=== PATIENT | female | born 1965 | race Caucasian/White ===

== ENCOUNTER 2017-08-09 11:43 | Emergency (ER) | payer OTHER ==
[2017-08-09] MEDS ORDERED: KETOROLAC TROMETHAMINE 30 MG/ML VIAL IM ONE (12:05)
[2017-08-09] MEDS ORDERED: PROMETHAZINE HCL 25 MG/ML AMPUL IM ONE (12:05)
--- NOTE | 2017-08-09 12:11 | ERNOTE ---
Headache ER HPI - Narrative Date of Service: 08/09/17 - General Presenting Symptoms: headache Time Seen by Provider: 08/09/17 11:59 Source: patient Exam Limitations: no limitations - Immun/Allergies/Home Medications Immunizations: IMMUNIZATION HX Immunizations Up to Date Yes History of Influenza Vaccine No Hx Pneumococcal Vaccination No Allergies/Adverse Reactions: Allergies Sulfa (Sulfonamide Antibiotics) [Sulfa(Sulfonamide Antibiotics)] Adverse Reaction (Mild, Verified 08/09/17 11:50) RASH Home Medications: HOME MEDICATIONS Insulin Glargine,Hum.rec.anlog [Lantus] 27 units SQ HS 06/28/12 [Last Taken Unknown] Lisinopril 10 mg PO QPM 06/28/12 [Last Taken Unknown] Blood Sugar Diagnostic, Drum [Accu-Chek Compact] 1 each MC DAILY 07/06/15 [Last Taken Unknown] Cetirizine HCl [Zyrtec] 10 mg PO DAILY PRN 07/06/15 [Last Taken Unknown] buPROPion HCL [Wellbutrin XL] 150 mg PO DAILY 07/06/15 [Last Taken Unknown] Amox Tr/Potassium Clavulanate [Augmentin 875-125 Tablet] 875 mg PO Q12H #20 tab 08/09/17 [Last Taken Unknown] Glimepiride [Amaryl] 4 mg PO BID@0700,1700 08/09/17 [Last Taken Unknown] Insulin Detemir [Levemir] 20 units SC BID 08/09/17 [Last Taken Unknown] - History of Present Illness Narrative: Patient was at a meeting today approx 2 hours ago and she began to develop a headache. She has had LOCKHART previously and has had to come here for Toradol and Phenergan shots she tells me. She relates that this LOCKHART felt like her prior HAs. Not thunderclap and not worse LOCKHART of life, but she had some floaters in her visual galicia and noticed some soft spots on the top of her head. She states that she googled this and came in. No N/T/W. Now her Sx are spontaneously improved. Visual changes resolved. No temporal pain. No fever or recent illness. Moderate. Pain was top of her head and also over her mid face. She has been having some sinus congestion and sinus Sx over the last several days. Activity at onset: other - none Timing of Headache: still present, better Context Headache: Absent: CO exposure, recent head injury < 24 hrs ago, recent head injury > 24 hrs Quality: Present: throbbing Severity-Currently: Present: moderate Headache frequency: Present: occasional headaches Modifying Factors - (Improves): Reports: other - nothing Modifying Factors - (Worsens): Reports: other - nothing Associated Symptoms: Denies: fever/chills, nausea, vomiting, weakness, numbness/ tingling, confusion, light-headedness, loss of consciousness, seizures, neck pain/stiffness Prior Treament: Denies: recently seen Review of Systems - Review of Systems Constitutional: Absent: fever ENT: Absent: sore throat Respiratory: Absent: shortness of breath Cardiology: Absent: chest pain Gastrointestinal/Abdominal: Absent: abdominal pain Genitourinary: Present: no symptoms reported Musculoskeletal: Present: no symptoms reported Skin: Absent: rash Neurological: Present: See HPI - Patient's Past Medical History Patient History - Medical: Diabetes Type 2, GERD Patient History - Cardiac/Respiratory: Hypertension Patient History - Cancer: No Hx of Cancer Patient History - Surgical Procedures: Hysterectomy, Other Patient History - Other: None - Social History Living Situations: home Abuse History: No History of abuse Psych History: Hx of Depression, Current tx/ever been on anti-depressants or anti-anxiety meds Alcohol Use: none Drug Use: none - Immunizations Immunizations Up to Date: Yes Hx Pneumococcal Vaccination: No History of Influenza Vaccine: No Physical Exam - Physical Exam General Appearance: Present: alert, no apparent distress Head Exam: Present: normal inspection, no evidence of injury Eye Exam: Normal inspection: bilateral, PERRL: bilateral, EOMI: bilateral Ears, Nose, Throat: Present: normal ENT inspection, other - no temporal artery tenderness. Neck: Present: normal inspection, supple Respiratory: Present: no respiratory distress, normal breath sounds, no accessory muscle use, lungs clear Cardiovascular/Chest: Present: regular rate, rhythm, normal peripheral pulses Gastrointestinal/Abdominal: Present: normal bowel sounds, nontender, nondistended, soft Back Exam: Present: normal range of motion Extremity Exam: Present: normal inspection Neurological Exam: Present: alert, normal mood/affect, no motor/sensory deficits , other - NIH - 0 Skin Exam: Present: normal color, warm/dry ED Progress - Results and Orders Patient's Lab Results:: I have reviewed the patient's lab results. - Vital Signs Patient's Vital Signs:: I have reviewed the patient's vital signs. Vital Signs: Vital Signs 08/09/17 08/09/17 11:46 11:51 Temperature 36.6 C Pulse Rate 95 89 Respiratory 12 16 Rate Blood Pressure 195/94 O2 Sat by Pulse 97 98 Oximetry - EKG EKG: NSR EKG read: Interp. by me EKG Comments: NSR rate 79. Non-specific, no evidence of STEMI. - CT/Ultrasound CT/Ultrasound Narrative: I reviewed official radiology report of HCT. - Progress/Reassessment Chief Complaint: Headache Progress:: Improved Progress Note-Subjective: 08/09/17 13:06 Lockhart nearly resolved. She does have sinus Sx (bilateral axillary) and air fluid levels on HCT. no ICH. Nothing clinically to suggest ICH, SAH or need for LP. No suggestion of meningitis. No suggestion of stroke clinically, temporal arteritis. At this time clear evidence of acute life or limb threat. ABx for the sinusitis and UTI. She wishes to go home. I discussed warning signs and reasons to return as well as the need for close f/u. Hx of similar HAs. No CP or SOB. 08/09/17 13:09 BP improving in the ED, nothing to suggest hypertensive urgency/emergency. Departure Clinical Impression: UTI (urinary tract infection), Sinusitis, Headache - Departure Disposition: Home self-care Condition: Stable Instructions: Sinusitis, Adult, [id number] Additional Instructions: Rest. Fluids. See the eye doctor tomorrow and call for a re-check appointment with Dr Krause as soon as possible. Return here for fever, weakness, return of headache, visual changes or if your condition worsens or changes in any way. Take antibiotics as directed. Referrals: Marie Krause MD [Primary Care Provider] - Prescriptions: Amox Tr/Potassium Clavulanate [Augmentin 875-125 Tablet] 875 mg PO Q12H #20 tab
[2017-08-09] MEDS ORDERED: KETOROLAC TROMETHAMINE 30 MG/ML VIAL ONE (12:19)
[2017-08-09 12:20] LABS: Hematocrit 40.1 % (37.0-47.0); Hemoglobin 13.7 gm/dL (12.5-16.0); Mean Cell Volume 84.2 fl (78-100); Mean Corpuscular Hemoglobin 28.8 pg (27-31); Mean Corpuscular Hgb Conc 34.2 g/dl (32-36); Mean Platelet Volume 10.2 fl (6.0-9.5); Neutrophil # 3.8 K/mm3 (1.3-6.0); Neutrophil % 57.3 % (42-75.0); Platelet Count 201 K/mm3 (150-450); Red Blood Count 4.76 M/mm3 (4.2-5.4); Red Cell Distribution Width 13.6 % (11.5-14.0); White Blood Count 6.6 K/mm3 (4.0-10.5)
[2017-08-09] MEDS ORDERED: PROMETHAZINE HCL 25 MG/ML AMPUL ONE (12:20)
[2017-08-09 12:36] LABS: ALT 32 U/L (19-67); AST 18 U/L (0-48); Albumin * 3.9 gm/dl (3.4-5.0); Alkaline Phosphatase * 106 U/L (50-170); Anion Gap 9.6 mmol/L (6.8-13.8); BUN/Creatinine Ratio 15.4 (9.0-21.6); Bilirubin, Total 0.5 mg/dL (0.0-1.1); Blood Urea Nitrogen 14 mg/dL (3-23); Calcium * 9.2 mg/dL (7.9-10.9); Carbon Dioxide 29.3 mmol/L (24-32.6); Chloride 100 mmol/L (97-106); Glucose * 264 mg/dL (70-110); Potassium 3.9 mmol/L (3.4-4.6); Sodium 135 mmol/L (132-142); Total Protein 7.7 gm/dL (6.2-8.2); Troponin I Less than 0.017 ng/ml (0.00-0.10)
[2017-08-09 12:39] LABS: Urine Bilirubin Negative (NEGATIVE); Urine Blood Negative /ul (NEGATIVE); Urine Ketone Negative (NEGATIVE); Urine Protein Negative (NEGATIVE); Urine Specific Gravity 1.025 SP.GR. (1.005-1.010); Urine Urobilinogen Normal (NORMAL); Urine pH 5.5 pH (5.0-7.0)
[2017-08-09 12:42] LABS: Urine Appearance Slightly Cloudy; Urine Bacteria 3+; Urine Color Yellow; Urine Nitrite Positive (NEGATIVE)
[2017-08-09 12:43] LABS: Urine RBC TRACE /hpf (0-5)
[2017-08-09 13:23] VITALS: BP 157/82
== END 2017-08-09 13:29 | disposition home or self-care (01) ==
LOC: ER 11:43
DX: N39.0 Urinary tract infection, site not specified (principal); J32.9 Chronic sinusitis, unspecified; R51 Headache; E11.9 Type 2 diabetes mellitus without complications; Z79.4 Long term (current) use of insulin; I10 Essential (primary) hypertension; F32.9 Major depressive disorder, single episode, unspecified